=== PATIENT | male | born 1955 | race Caucasian/White ===

== ENCOUNTER → 2017-11-27 | Outpatient (CLI) | payer OTHER ==
[~2017-11-27] MED LIST: ALLO300T2 PO; ASCO500T16 PO; CYAN100020 PO; MULTTAB58 PO; RANI150C4 PO
== END | disposition home or self-care (01) ==
LOC: C.PATHSPEC 10:55
PROVIDERS: ATTEND Urology
DX: N50.89 Other specified disorders of the male genital organs (principal)

== ENCOUNTER 2024-01-10 22:27 | Observation (INO) ==
--- NOTE | 2024-01-10 23:46 | Emergency Department Note ---
Impression & Plan Closed trimalleolar fracture, Fall from slipping on mud ED Provider Note CHIEF COMPLAINT: Right ankle pain HISTORY OF PRESENT ILLNESS: This 68-year-old male patient presents to the emergency department via ambulance approximately 3-hour after sustaining an injury to the right ankle and foot with a twisting, inversion motion and he slipped in the mud and fell while tending to his chicken. The patient complains of pain along the outside of the ankle. He states he was unable to bear weight and had to crawl back to the house in order to call his daughter to help. When his daughter arrived, she called the ambulance to bring him to the emergency department. The patient denies pain of the foot. The patient rates the pain as throbbing and 8/10. Constant pain, worse with movement, weight bearing, and the dependent position. No knee pain, the patient is able to move their toes. No numbness or weakness of the foot, no laceration. The patient has not had a previous fracture to this ankle. The patient has taken no medication for the pain. The patient denies any other injury. REVIEW OF SYSTEMS: A 6 system review of systems was completed with positives and pertinent negatives listed in the HPI. ALLERGIES: NKDA PHYSICAL EXAM: Vital Signs: Reviewed Nurse's notes, vital signs stable. GENERAL: This is a 78-year-old male, no acute distress, but appears in pain, well-developed, well-nourished. MENTAL STATUS: Alert, oriented to person place and time, and cooperative. MUSCULOSKELETAL: The right ankle is swollen and tender over the medial and lateral malleolus, but the skin is intact and there is no ligamentous instability. There is no fifth metatarsal tenderness. There is no tenderness over the rest of the foot. There is no calf or tibia/fibular tenderness. There is no visual deformity. The foot and toes are warm and well- perfused. Dorsalis pedis pulse 2+. Sensation to pain and light touch is intact. Capillary refill less than 2 seconds. RADIOLOGY: X-ray right ankle, per my interpretation: Trimalleolar fracture with disruption of the ankle mortise EMERGENCY DEPARTMENT COURSE: I examined the patient. IV access was obtained, labs are drawn. The patient was medicated with IV morphine and Zofran. X-rays of the right ankle were reviewed by myself and Dr. Sharma and reveal trimalleolar fracture with disruption of the ankle mortise. I discussed the case with orthopedics. I spoke with Dr. Mosquera. Given the patient's ambulation status and that he will not be able to safely return home in a splint and being nonweightbearing on the extremity through the weekend, did recommend admission. He will operate tomorrow. Did request that we try to reduce the fracture while placing the splint. Did request that the hospitalist admit the patient. He will see the patient in the morning. He did request that the extremity be kept elevated overnight to help with swelling. A posterior leg with stirrup Ortho-Glass splint was applied to the ankle under my direction and the position was satisfactory. I did apply traction to the heel of the foot while grasping the toes with nursing staff applying countertraction at the knee in attempt to straighten the fracture during splint application. Neurovascular status was rechecked and intact. Repeat X-ray of the right ankle with only minimal improvement of the ankle mortise alignment, however the patient declines additional manipulation at this time. The patient will remain nonweightbearing status. I discussed the case with Dr. Montoya for admission. Please see his dictation regarding admission/inpatient care. DIFFERENTIAL DIAGNOSIS: Fracture, subluxation, dislocation, contusion, ligamentous injury, neurovascular, compartment syndrome, as well as other pathologies. I attest that I have personally reviewed the patient's current medication list. Patient was found to have an elevated blood pressure and was referred to their primary doctor for recheck and further treatment. The chart was completed utilizing Stream5 Speech voice recognition software. Grammatical errors, random word insertions, pronoun errors, and incomplete sentences are an occasional consequence of this system due to software limitations, ambient noise, and hardware issues. Any formal questions or concerns about the content, text, or information contained within the body of this dictation should be directly addressed to the provider for clarification. Past Med/Surg History Medical History [place] (nonalcoholic steatohepatitis) GERD (gastroesophageal reflux disease) Neuropathy Anxiety HTN (hypertension) Hepatomegaly Prostate nodule Gout Benign localized hyperplasia of prostate with urinary obstruction Transitional cell carcinoma determined by biopsy of bladder hx- ~2013- no chemo or radiation Surgical History Hx of colonoscopy History of evacuation of hematoma right thigh, after an accident Hx of blepharoplasty BILAT Hx of rotator cuff surgery History of bladder surgery Family History Other No pertinent family history Social History Smoking Status: Never smoker Tobacco Type: Smokeless Tobacco (Dip or Chew) Second Hand Exposure: No; Do You Dip or Chew Tobacco: Yes (advsied); Hx Alcohol Use: Yes Hx Substance Use: No Preferred Language: Colombian Communication Ability: Effective Sensor Specialist Required: No Beliefs That Will Affect Care: None Current Living Situation: Alone Feels Safe at Home: Yes Assistive Devices: Denture - Upper and Glasses Allergies Allergies Allergy/AdvReac Type Severity Reaction Status Date / Time No Known Allergies Allergy Verified 01/11/24 00:28 Home Meds Home Medications Medication Instructions Recorded Confirmed allopurinol 300 mg tablet 300 mg PO QAM 04/27/23 01/11/24 cholecalciferol (vitamin D3) 50 50 mcg PO QAM 04/27/23 01/11/24 mcg (2,000 unit) capsule clonidine HCl 0.1 mg tablet 0.1 mg PO QAM 04/27/23 01/11/24 gabapentin 100 mg capsule 100 mg PO BID 04/27/23 01/11/24 hydrochlorothiazide 25 mg tablet 25 mg PO QAM 04/27/23 01/11/24 losartan 100 mg tablet 100 mg PO QAM 04/27/23 01/11/24 multivitamin 1 tab PO DAILY 04/27/23 01/11/24 omeprazole 20 mg capsule,delayed 20 mg PO QAM 04/27/23 01/11/24 release aspirin 81 mg capsule 81 mg PO DAILY 10/03/23 01/11/24 cyanocobalamin (vitamin B-12) 5,000 mcg sublingual DAILY 01/11/24 01/11/24 5,000 mcg sublingual tablet (Vitamin B-12) potassium citrate 99 mg capsule 99 mg PO DAILY 01/11/24 01/11/24 Results & Data (ED) Vital Signs Vital Signs - 24 hr 01/10/24 22:27 01/11/24 00:15 Temperature 37.1 C Temperature Source Oral Pulse Rate 70 Pulse Rate [Right Finger] 88 Pulse Rhythm [Right Finger] Regular Pulse Strength [Right Finger] Normal Respiratory Rate 20 18 Respiratory Effort / Characteristics Non-Labored Spontaneous Non-Labored Spontaneous Respiratory Depth Normal Normal Respiratory Pattern Regular Blood Pressure 169/82 H Blood Pressure [Right Arm] 170/86 H Blood Pressure Mean 111 Blood Pressure Mean [Right Arm] 114 Pulse Oximetry 95 96 Oxygen Delivery Method Room Air Room Air Sepsis Recent Fever Within 48 Hours No Sepsis New/Unexplained Change in Mental Status N/A Sepsis Action Taken by Nursing No Action Required Laboratory Data 01/11/24 00:12 01/11/24 00:12 Lab Results 01/11/24 Range/Units 00:12 WBC 8.80 (4.8-10.8) K/ul RBC 4.10 L (4.70-6.10) M/uL Hgb 15.0 (14.0-18.0) g/dl Hct 42.1 (42.0-52.0) % MCV 102.7 H (80.0-100.0) fL MCH 36.6 H (25.0-34.0) pg MCHC 35.6 (32.0-36.0) g/dL RDW Std Deviation 51.2 H (36.4-46.3) fL RDW Coeff of Nettie 13.5 (11.5-14.5) % Plt Count 221 (130-400) K/uL MPV 11.3 (9.4-12.4) fL Immature Gran % (Auto) 0.6 % Neut % (Auto) 66.4 % Lymph % (Auto) 23.1 % [place] % (Auto) 7.8 % Eos % (Auto) 1.3 % Baso % (Auto) 0.8 % Neut # (Auto) 5.85 (1.40-6.50) K/uL Lymph # (Auto) 2.03 (1.20-3.40) K/uL [place] # (Auto) 0.69 H (0.11-0.59) K/uL Eos # (Auto) 0.11 (0.00-0.50) K/uL Baso # (Auto) 0.07 (0.00-0.20) K/uL Immature Gran # (Auto) 0.05 (0.01-0.20) K/uL Sodium 140 (136-145) mmol/L Potassium 3.9 (3.5-5.1) mmol/L Chloride 108 H (98-107) mmol/L Carbon Dioxide 20 L (21-32) mmol/L Anion Gap 12 H (3-11) BUN 17 (6-23) mg/dl Creatinine 0.93 (0.6-1.4) mg/dl Est Cr Clr Drug Dosing 94.8 ml/min Est GFR ( Amer) 96.7 ml/min Est GFR (Non-Af Amer) 83.5 ml/min BUN/Creatinine Ratio 18.3 (10-20) Glucose 114 H (70-99(Fasting)) mg/dl Calcium 9.4 (8.6-10.3) mg/dl Total Bilirubin 0.8 (0.2-1.0) mg/dl AST 52 H (13-39) U/L ALT 53 H (7-52) U/L Alkaline Phosphatase 39 (34-104) U/L Total Protein 6.9 (6.0-8.3) gm/dl Albumin 4.2 (3.4-5.0) gm/dl Globulin 2.7 (2.5-4.0) gm/dl Albumin/Globulin Ratio 1.6 (0.9-2) Administered Medications Discontinued Medications Morphine Sulfate (Morphine Sulfate 4 Mg/Ml 1 Ml Carp\Vial) 4 mg IV NOW STA Stop: 01/10/24 23:35 Last Admin: 01/11/24 00:08 Dose: 4 mg Documented By: RIVERA Morphine Sulfate (Morphine Sulfate 4 Mg/Ml 1 Ml Carp\Vial) 4 mg IV NOW STA Stop: 01/11/24 00:34 Last Admin: 01/11/24 00:35 Dose: 4 mg Documented By: RIVERA Ondansetron HCl (Ondansetron Inj 2 Mg/Ml 2 Ml Vial) 4 mg IV NOW STA Stop: 01/10/24 23:35 Last Admin: 01/11/24 00:09 Dose: 4 mg Documented By: RIVERA Discharge Plan Visit Data Chief Complaint: Fall Stated Complaint: FALL ED Provider: Aric Sharma ED Midlevel Provider: Chasity Chahal Discharge Problem: Closed trimalleolar fracture, Fall from slipping on mud Patient Disposition: Admitted As Inpatient Forms Stand Alone Forms: [facility] Prescriptions Prescriptions: No Action clonidine HCl 0.1 mg tablet 0.1 mg PO QAM losartan 100 mg tablet 100 mg PO QAM hydrochlorothiazide 25 mg tablet 25 mg PO QAM omeprazole 20 mg capsule,delayed release(DR/EC) 20 mg PO QAM gabapentin 100 mg capsule 100 mg PO BID cholecalciferol (vitamin D3) 50 mcg (2,000 unit) capsule 50 mcg PO QAM allopurinol 300 mg tablet 300 mg PO QAM multivitamin Tablet 1 tab PO DAILY aspirin 81 mg Capsule 81 mg PO DAILY cyanocobalamin (vitamin B-12) [Vitamin B-12] 5,000 mcg Tablet, Sublingual 5,000 mcg SUBLINGUAL DAILY potassium citrate 99 mg Capsule 99 mg PO DAILY Referrals Referrals: Noe Maldonado [Outside Practitioners] -
[2024-01-11] MEDS: MoRPHine SULFATE 4 MG/ML 1 ML CARP\\VIAL IV STA ×2 (00:08→00:35)
[2024-01-11] MEDS: ONDANSETRON INJ 2 MG/ML 2 ML VIAL IV STA (00:09)
[2024-01-11 00:40] LABS: Basophils # (auto) 0.07 K/uL (0.00-0.20); Basophils % (auto) 0.8 %; Eosinophils # (auto) 0.11 K/uL (0.00-0.50); Eosinophils % (auto) 1.3 %; Hematocrit (blood only) 42.1 % (42.0-52.0); Immature Granulocytes # (auto) 0.05 K/uL (0.01-0.20); Immature Granulocytes % (auto) 0.6 %; Lymphocytes # (auto) 2.03 K/uL (1.20-3.40); Lymphocytes % (auto) 23.1 %; Mean Corpuscular Hemoglobin 36.6 pg (25.0-34.0); Mean Corpuscular Hgb Conc 35.6 g/dL (32.0-36.0); Mean Corpuscular Volume 102.7 fL (80.0-100.0); Mean Platelet Volume 11.3 fL (9.4-12.4); Monocytes # (auto) 0.69 K/uL (0.11-0.59); Monocytes % (auto) 7.8 %; Neutrophils # (auto) 5.85 K/uL (1.40-6.50); Neutrophils % (auto) 66.4 %; Platelet Count 221 K/uL (130-400); RDW Coefficient of Variation 13.5 % (11.5-14.5); RDW Standard Deviation 51.2 fL (36.4-46.3)
[2024-01-11 00:48] LABS: Albumin Globulin Ratio 1.6 (0.9-2); Albumin Level 4.2 gm/dl (3.4-5.0); BUN Creatinine Ratio 18.3 (10-20); Bilirubin,Total 0.8 mg/dl (0.2-1.0); Calcium 9.4 mg/dl (8.6-10.3); Creatinine Clr Calc Pharmacy 94.8 ml/min; Est GFR (African American) 96.7 ml/min; Est GFR (Non-African American) 83.5 ml/min; Globulin 2.7 gm/dl (2.5-4.0); Potassium 3.9 mmol/L (3.5-5.1); Total Protein 6.9 gm/dl (6.0-8.3)
[2024-01-11] MEDS ORDERED: LORazepam 3 MG in SYRINGE 1.5 ML IV PRN (03:23)
[2024-01-11] MEDS ORDERED: LORazepam 2 MG in SYRINGE 1 ML IV PRN (03:23)
[2024-01-11] MEDS ORDERED: LORazepam 1 MG in SYRINGE 0.5 ML IV PRN (03:23)
[2024-01-11] MEDS ORDERED: GABAPENTIN 1200MG ALCOHOL WITHDRAWAL LOAD PO STA (03:23)
[2024-01-11] MEDS ORDERED: POLYETHYLENE (MIRALAX) 17 GM PACK PO PRN (03:23)
[2024-01-11] MEDS ORDERED: Ativan IV Alcohol Withdrawal--Active Protocol IV PRN (03:23)
--- NOTE | 2024-01-11 03:28 | History & Physical Report ---
Date of Service January 11, 2024 Assessment & Plan (1) Fall from slipping on mud: Plan: 68-year-old male with past medical history significant for gout, hypertension, GERD is s/p fall and found to have right ankle fracture. Patient was tending to chicken when he slipped and fell in the mud and twisting his leg. Was having pain. Prior to falling was able to ambulate okay. He can ambulate a block without stopping. He can climb steps. Denies any chest pain or shortness of breath. No nausea. No headache. No dizziness. Vision is okay. No runny nose or sore throat or cough. No nausea. No abdominal pain. Normal bowel and bladder movements. Currently resting comfortably and hemodynamically stable. No fevers Fall from slipping on mud Right ankle fracture N.p.o., IV fluids, pain control Ortho consult in a.m. Will get preop checks x-ray and EKG and if okay patient should be at acceptable to proceed with the any procedures for ankle fracture Hypertension Continue home medications of hydrochlorothiazide, clonidine and losartan GERD omeprazole Alcoholism States drinks 3-4 shots of vodka daily and he states he can go without drinking and does not think he gets withdrawal Will place on gabapentin alcohol withdrawal protocol with Ativan as needed, thiamine and folic acid Close monitor Morbid obesity [place] Needs counseling Needs follow-up DVT prophylaxis Per Ortho Disposition Medical floor Full code History of Present Illness Chief Complaint: S/p fall and right ankle fracture Primary Care Provider: Kaela Campos 68-year-old male with past medical history significant for gout, hypertension, GERD is s/p fall and found to have right ankle fracture. Patient was tending to chicken when he slipped and fell in the mud and twisted his leg. Was having pain. Prior to falling was able to ambulate okay. He can ambulate a block without stopping. He can climb steps. Denies any chest pain or shortness of breath. No nausea. No headache. No dizziness. Vision is okay. No runny nose or sore throat or cough. No nausea. No abdominal pain. Normal bowel and bladder movements. Currently resting comfortably and hemodynamically stable. No fevers Past medical history. As mentioned above Past surgical history. Right wrist fracture ORIF. Right shoulder surgery Social history. . Snuff tobacco states drink 3-4 shots of vodka daily. 2 drug use Family history. Mother had heart disorder Allergies Allergy/AdvReac Type Severity Reaction Status Date / Time No Known Allergies Allergy Verified 01/11/24 00:28 Home Medications Medication Instructions Recorded Confirmed Type allopurinol 300 mg tablet 300 mg PO QAM 04/27/23 01/11/24 History cholecalciferol (vitamin D3) 50 50 mcg PO QAM 04/27/23 01/11/24 History mcg (2,000 unit) capsule clonidine HCl 0.1 mg tablet 0.1 mg PO QAM 04/27/23 01/11/24 History gabapentin 100 mg capsule 100 mg PO BID 04/27/23 01/11/24 History hydrochlorothiazide 25 mg tablet 25 mg PO QAM 04/27/23 01/11/24 History losartan 100 mg tablet 100 mg PO QAM 04/27/23 01/11/24 History multivitamin 1 tab PO DAILY 04/27/23 01/11/24 History omeprazole 20 mg capsule,delayed 20 mg PO QAM 04/27/23 01/11/24 History release aspirin 81 mg capsule 81 mg PO DAILY 10/03/23 01/11/24 History cyanocobalamin (vitamin B-12) 5,000 mcg sublingual DAILY 01/11/24 01/11/24 History 5,000 mcg sublingual tablet (Vitamin B-12) potassium citrate 99 mg capsule 99 mg PO DAILY 01/11/24 01/11/24 History Past Med/Surg History Medical History [place] (nonalcoholic steatohepatitis) GERD (gastroesophageal reflux disease) Neuropathy Anxiety HTN (hypertension) Hepatomegaly Prostate nodule Gout Benign localized hyperplasia of prostate with urinary obstruction Transitional cell carcinoma determined by biopsy of bladder hx- ~2013- no chemo or radiation Surgical History Hx of colonoscopy History of evacuation of hematoma right thigh, after an accident Hx of blepharoplasty BILAT Hx of rotator cuff surgery History of bladder surgery Family History Other No pertinent family history Social History Smoking Status: Never smoker Tobacco Type: Smokeless Tobacco (Dip or Chew) Second Hand Exposure: No; Do You Dip or Chew Tobacco: Yes; Hx Alcohol Use: Yes Alcohol type: hard liquor Hx Substance Use: No Preferred Language: Kosovan Communication Ability: Effective Tax Associate Attorney Required: No Beliefs That Will Affect Care: None Current Living Situation: Alone Feels Safe at Home: Yes Safety Concerns: Feels Safe At This Time Assistive Devices: Denture - Upper and Glasses Review of Systems Review of Systems: All systems reviewed & are unremarkable except as noted in HPI & below Physical Exam Physical Exam: General- Not in distress Head- atraumatic Eyes- PERRL ENT- oropharynx clear Neck- supple, no JVD. Lungs- clear to auscultation no wheezing or crackles Heart- regular rate and rhythm; no murmur, no gallop. Abdomen- normal bowel sounds, soft, nontender, no distension Extremities- Right leg in splint.left leg no edema or erytthema Neuro- alert, oriented ; PERRL, no facial palsy; no dysarthria; obeys simple commands Results & Data Results & Data Vital Signs (Past 12 Hours) Vital Signs Temp Pulse Pulse Resp BP BP Pulse Ox 01/11/24 02:00 80 16 149/71 H 97 01/11/24 02:00 97 01/11/24 00:15 88 18 170/86 H 96 01/10/24 22:27 37.1 C 70 20 169/82 H 95 O2 Del Method O2 Flow Rate 01/11/24 02:00 Nasal Cannula 2 01/11/24 02:00 Nasal Cannula 2 01/11/24 00:15 Room Air 01/10/24 22:27 Room Air Diagnostic Findings Laboratory Results WBC 8.80 K/ul (4.8-10.8) 01/11/24 00:12 RBC 4.10 M/uL (4.70-6.10) L 01/11/24 00:12 Hgb 15.0 g/dl (14.0-18.0) 01/11/24 00:12 Hct 42.1 % (42.0-52.0) 01/11/24 00:12 MCV 102.7 fL (80.0-100.0) H 01/11/24 00:12 MCH 36.6 pg (25.0-34.0) H 01/11/24 00:12 MCHC 35.6 g/dL (32.0-36.0) 01/11/24 00:12 RDW Std Deviation 51.2 fL (36.4-46.3) H 01/11/24 00:12 RDW Coeff of Nettie 13.5 % (11.5-14.5) 01/11/24 00:12 Plt Count 221 K/uL (130-400) 01/11/24 00:12 MPV 11.3 fL (9.4-12.4) 01/11/24 00:12 Immature Gran % (Auto) 0.6 % 01/11/24 00:12 Neut % (Auto) 66.4 % 01/11/24 00:12 Lymph % (Auto) 23.1 % 01/11/24 00:12 [place] % (Auto) 7.8 % 01/11/24 00:12 Eos % (Auto) 1.3 % 01/11/24 00:12 Baso % (Auto) 0.8 % 01/11/24 00:12 Neut # (Auto) 5.85 K/uL (1.40-6.50) 01/11/24 00:12 Lymph # (Auto) 2.03 K/uL (1.20-3.40) 01/11/24 00:12 [place] # (Auto) 0.69 K/uL (0.11-0.59) H 01/11/24 00:12 Eos # (Auto) 0.11 K/uL (0.00-0.50) 01/11/24 00:12 Baso # (Auto) 0.07 K/uL (0.00-0.20) 01/11/24 00:12 Immature Gran # (Auto) 0.05 K/uL (0.01-0.20) 01/11/24 00:12 Sodium 140 mmol/L (136-145) 01/11/24 00:12 Potassium 3.9 mmol/L (3.5-5.1) 01/11/24 00:12 Chloride 108 mmol/L (98-107) H 01/11/24 00:12 Carbon Dioxide 20 mmol/L (21-32) L 01/11/24 00:12 Anion Gap 12 (3-11) H 01/11/24 00:12 BUN 17 mg/dl (6-23) 01/11/24 00:12 Creatinine 0.93 mg/dl (0.6-1.4) 01/11/24 00:12 Est Cr Clr Drug Dosing 94.8 ml/min 01/11/24 00:12 Est GFR ( Amer) 96.7 ml/min 01/11/24 00:12 Est GFR (Non-Af Amer) 83.5 ml/min 01/11/24 00:12 BUN/Creatinine Ratio 18.3 (10-20) 01/11/24 00:12 Glucose 114 mg/dl (70-99(Fasting)) H 01/11/24 00:12 Calcium 9.4 mg/dl (8.6-10.3) 01/11/24 00:12 Total Bilirubin 0.8 mg/dl (0.2-1.0) 01/11/24 00:12 AST 52 U/L (13-39) H 01/11/24 00:12 ALT 53 U/L (7-52) H 01/11/24 00:12 Alkaline Phosphatase 39 U/L (34-104) 01/11/24 00:12 Total Protein 6.9 gm/dl (6.0-8.3) 01/11/24 00:12 Albumin 4.2 gm/dl (3.4-5.0) 01/11/24 00:12 Globulin 2.7 gm/dl (2.5-4.0) 01/11/24 00:12 Albumin/Globulin Ratio 1.6 (0.9-2) 01/11/24 00:12 Code Status & VTE Plan VTE Prophylaxis Plan VTE Prophylaxis will be ordered: Yes
[2024-01-11] MEDS: MULTI-VITAMIN INFUSION 10 ML, THIAMINE HCL 100 MG, FOLIC ACID 1 MG in SODIUM CHLORIDE 0... IV ONE (04:34)
[2024-01-11] MEDS: GABAPENTIN 600 MG TAB PO ONE (04:34)
[2024-01-11] MEDS: ACETAMINOPHEN 325 MG TAB PO PRN (05:10)
[2024-01-11] MEDS: HYDROmorphone INJ 0.5 MG/0.5 ML SYR IV PRN (05:52)
[2024-01-11] MEDS: SODIUM CHLORIDE 0.9% 1,000 ML IV SCH ×2 (06:39→19:01)
--- NOTE | 2024-01-11 07:07 | XRay Report ---
XR chest 1V portable HISTORY: 68 years-old Male pre op preoperative exam. No acute chest complaints COMPARISON: 12/19/2021 TECHNIQUE: AP view of the chest FINDINGS: Cardiac silhouette is upper limits of normal in size. No pneumothorax, pleural effusion or airspace c onsolidation. Bones appear grossly intact. IMPRESSION: No acute process. ACT 112: Negative or not required by law. The above report was generated using voice recognition software. It may contain grammatical, syntax o r spelling errors. Electronically signed by: Mike Lozano M.D. 01/11/2024 7:05 AM
--- NOTE | 2024-01-11 07:11 | XRay Report ---
XR ankle RT 2V HISTORY: 68 years-old Male post-splint acute right ankle pain COMPARISON: Radiographs of same day at 10:37 PM TECHNIQUE: 2 radiographic views of the right ankle FINDINGS: Status post reduction and casting of the acute comminuted trimalleolar ankle fracture. There is mildl y improved alignment of the lateral, medial and posterior malleolar fractures. Additionally, there is improved alignment of the tibiotalar joint. Intra-articular fracture fragments of the anterior joint recess measuring up to 10 mm. Spurring of the calcaneus. Findings bony details obscured by overlying casting material. IMPRESSION: 1. Mildly improved alignment of the acute trimalleolar ankle fracture with improved alignment of the tibiotalar joint. 2. Intra-articular fracture fragments measure up to 10 mm. ACT 112: Negative or not required by law. The above report was generated using voice recognition software. It may contain grammatical, syntax o r spelling errors. Electronically signed by: Mike Lozano M.D. 01/11/2024 7:09 AM
--- NOTE | 2024-01-11 07:27 | XRay Report ---
XR ankle RT min 3V routine HISTORY: 68 years-old Male Ankle trauma, no prior imaging acute right ankle pain status post trauma COMPARISON: None TECHNIQUE: 3 views of the right ankle FINDINGS: There is an acute, comminuted, angulated and displaced trimalleolar ankle fracture with associated ti biotalar subluxation. Moderate soft tissue swelling with joint effusion. Intra-articular fracture fra gments measure up to approximately 10 mm anteriorly. Spurring of the calcaneus with dystrophic calcif ications of the distal Achilles tendon. IMPRESSION: 1. Acute, comminuted, displaced and angulated trimalleolar ankle fracture. 2. Tibiotalar subluxation with intra-articular fracture fragments. ACT 112: Negative or not required by law. The above report was generated using voice recognition software. It may contain grammatical, syntax o r spelling errors. Electronically signed by: Mike Lozano M.D. 01/11/2024 7:26 AM
--- NOTE | 2024-01-11 07:34 | Anesthesiology Consultation ---
Date of Service January 11, 2024 Assessment & Plan (1) Encounter for pre-operative examination: Chart Review Chart Review: Acceptable Risk for Surgery (ECG has been ordered and will be reviewed preop) History Surgery Operation Date: 01/11/24 07:20 Proposed Procedures p Right Open Reduction Internal Fixation Ankle - Cam Mosquera MD Height/Weight Height: 5 ft 8 in Weight: 120.8 kg Allergies Allergy/AdvReac Type Severity Reaction Status Date / Time No Known Allergies Allergy Verified 01/11/24 00:28 Medications Home Medications Medication Instructions Recorded Confirmed Last Taken allopurinol 300 mg tablet 300 mg PO QAM 04/27/23 01/11/24 01/10/24 cholecalciferol (vitamin D3) 50 50 mcg PO QAM 04/27/23 01/11/24 01/10/24 mcg (2,000 unit) capsule clonidine HCl 0.1 mg tablet 0.1 mg PO QAM 04/27/23 01/11/24 01/10/24 gabapentin 100 mg capsule 100 mg PO BID 04/27/23 01/11/24 01/10/24 hydrochlorothiazide 25 mg tablet 25 mg PO QAM 04/27/23 01/11/24 01/10/24 losartan 100 mg tablet 100 mg PO QAM 04/27/23 01/11/24 01/10/24 multivitamin 1 tab PO DAILY 04/27/23 01/11/24 01/10/24 omeprazole 20 mg capsule,delayed 20 mg PO QAM 04/27/23 01/11/24 01/10/24 release aspirin 81 mg capsule 81 mg PO DAILY 10/03/23 01/11/24 01/10/24 cyanocobalamin (vitamin B-12) 5,000 mcg sublingual DAILY 01/11/24 01/11/24 01/10/24 5,000 mcg sublingual tablet (Vitamin B-12) potassium citrate 99 mg capsule 99 mg PO DAILY 01/11/24 01/11/24 01/10/24 Active Medications Generic Name Dose Route Start Last Admin Trade Name Freq PRN Reason Stop Dose Admin Acetaminophen 650 mg 01/11/24 03:23 01/11/24 05:10 Acetaminophen 325 Mg Tab PO 02/10/24 03:22 650 mg Q4H PRN Administration pain/fever Hydromorphone HCl 0.5 mg 01/11/24 03:23 01/11/24 05:52 Hydromorphone Inj 0.5 Mg/0.5 Ml Syr IV 01/25/24 03:22 0.5 mg Q3H PRN Administration Mod-Sev Pain (Scale 4-10) Sodium Chloride 1,000 mls @ 100 mls/hr 01/11/24 03:23 01/11/24 06:39 Nss IV 02/10/24 03:22 100 mls/hr .Q10H MELISSA Administration Past Medical History Medical History [place] (nonalcoholic steatohepatitis) GERD (gastroesophageal reflux disease) Neuropathy Anxiety HTN (hypertension) Hepatomegaly Prostate nodule Gout Benign localized hyperplasia of prostate with urinary obstruction Transitional cell carcinoma determined by biopsy of bladder hx- ~2013- no chemo or radiation Past Family History Family History Other No pertinent family history Past Surgical History Surgical History Hx of colonoscopy History of evacuation of hematoma right thigh, after an accident Hx of blepharoplasty BILAT Hx of rotator cuff surgery History of bladder surgery Social History Smoking Status: Never smoker Do You Dip or Chew Tobacco: Yes Hx Alcohol Use: Yes Alcohol type: hard liquor alcohol intake frequency: 3 or more drinks per day Hx Substance Use: No substance use type: does not use Physical Exam Vital Signs Last Vital Signs Temp 36.7 C 01/11/24 04:36 Pulse 77 01/11/24 06:59 Resp 18 01/11/24 06:59 BP 133/68 01/11/24 06:59 Pulse Ox 97 01/11/24 06:59 O2 Del Method Nasal Cannula 01/11/24 06:59 O2 Flow Rate 2 01/11/24 06:59 Testing Laboratory Results 01/11/24 00:12 01/11/24 00:12
[2024-01-11 08:15] LABS: Basophils # (auto) 0.05 K/uL (0.00-0.20); Basophils % (auto) 0.6 %; Eosinophils # (auto) 0.12 K/uL (0.00-0.50); Eosinophils % (auto) 1.4 %; Hematocrit (blood only) 41.4 % (42.0-52.0); Hemoglobin 14.2 g/dl (14.0-18.0); Immature Granulocytes # (auto) 0.04 K/uL (0.01-0.20); Immature Granulocytes % (auto) 0.5 %; Lymphocytes # (auto) 1.73 K/uL (1.20-3.40); Lymphocytes % (auto) 20.4 %; Mean Corpuscular Hemoglobin 35.9 pg (25.0-34.0); Mean Corpuscular Hgb Conc 34.3 g/dL (32.0-36.0); Mean Corpuscular Volume 104.5 fL (80.0-100.0); Mean Platelet Volume 11.2 fL (9.4-12.4); Monocytes # (auto) 0.85 K/uL (0.11-0.59); Neutrophils # (auto) 5.68 K/uL (1.40-6.50); Neutrophils % (auto) 67.1 %; Platelet Count 191 K/uL (130-400); RDW Coefficient of Variation 13.7 % (11.5-14.5); Red Blood Count 3.96 M/uL (4.70-6.10); White Blood Count 8.47 K/ul (4.8-10.8)
[2024-01-11 08:24] LABS: BUN Creatinine Ratio 17.2 (10-20); Calcium 8.8 mg/dl (8.6-10.3); Creatinine Clr Calc Pharmacy 94.8 ml/min; Est GFR (African American) 96.7 ml/min; Est GFR (Non-African American) 83.5 ml/min; Magnesium 1.4 mg/dl (1.7-2.4); Potassium 4.1 mmol/L (3.5-5.1)
[2024-01-11] MEDS: cloNIDine HCL 0.1 MG TAB PO SCH (08:43)
[2024-01-11] MEDS: allopurinoL 300 MG TAB PO SCH (08:43)
[2024-01-11] MEDS: PANTOprazole 40 MG TAB PO SCH (08:43)
[2024-01-11] MEDS: ASPIRIN 81 MG ECTAB PO SCH ×2 (08:44→20:12)
[2024-01-11] MEDS: LOSARTAN POTASSIUM 50 MG TAB PO SCH (08:44)
[2024-01-11] MEDS: MULTIVITAMIN TAB PO SCH (08:44)
[2024-01-11] MEDS: hydroCHLOROthiazide 25 MG TAB PO SCH (08:44)
[2024-01-11] MEDS: CHOLECALCIFEROL 25 MCG (1000 UNITS) TAB PO SCH (08:44)
[2024-01-11] MEDS: CYANOCOBALAMIN (B-12) 2,500 MCG TABLET SL SCH (08:44)
[2024-01-11] MEDS ORDERED: NON-FORMULARY MEDICATION (Potassium Citrate 99 mg Capsule) PO SCH (09:00)
[2024-01-11] MEDS ORDERED: ROPIVACAINE 0.5% 5 MG/ML 30 ML VIAL ONE (09:02)
[2024-01-11] MEDS: GABAPENTIN 600 MG TAB PO SCH (09:29)
[2024-01-11] MEDS ORDERED: MIDAZOLAM HCL 1 MG/ML 2ML VIAL ONE (11:41)
[2024-01-11] MEDS ORDERED: fentaNYL citrate PF 100 MCG/2 ML VIAL ONE ×2 (11:41→14:41)
[2024-01-11] MEDS ORDERED: DEXAMETHASONE SOD INJ 4 MG/ML VIAL ONE (11:44)
[2024-01-11] MEDS ORDERED: ONDANSETRON INJ 2 MG/ML 2 ML VIAL ONE (11:44)
[2024-01-11] MEDS ORDERED: PROPOFOL IV EMULSION 10 MG/ML 20 ML VIAL IV ONE (11:44)
--- NOTE | 2024-01-11 11:47 | Orthopedic Consultation ---
Date of Service January 11, 2024 Assessment & Plan (1) Closed trimalleolar fracture: I had a long discussion today with patient about his right ankle pathology with ample amount of time patient ask any questions or state and concerns. All question concerns were answered to the patient satisfaction. At this point in time, I did discuss with him that his right ankle fracture will require surgery to improve his outcome from this fracture. I described the risk, benefits, alternatives to open reduction internal fixation of right trimalleolar ankle fracture in full detail with ample amount of time for patient to ask any questions or state any concerns. All questions and concerns were answered to the patient's satisfaction. Patient wishes to proceed with surgical intervention. Consent was signed and witnessed. Will proceed later this afternoon with the stated procedure. Dr. Mosquera will be the surgeon performing the operation. He will remain n.p.o. at this point. Postoperative expectations were also discussed with the patient. Will proceed with surgical intervention later today. History of Present Illness Reason for Consultation: . Right trimalleolar ankle fracture Requesting Physician: . Attending Physician: Josefina Chaney MD . Channing is a 68-year-old gentleman who presented to the emergency department after sustaining a fall late last evening. He notes that he was outside tending to his chickens whenever he slipped on blood and landed on his right side. He noted that he was unable to weight-bear so he had to crawl back to his house. At that point his daughter was able to call for help. When he arrived at the emergency department an x-ray was completed and is when they found that he had a trimalleolar ankle fracture. They were able to put a temporary splint on him. Orthopedics was then consulted. Upon my examination, he notes that his pain is well-controlled unless he tries to move the right lower extremity. He notes that his pain is about a 4 out of 10 and less moved and then can go to a 10 out of 10. His pain is diffusely throughout the right ankle joint. He denies any other discomforts. He does state that he takes a baby aspirin daily but is unaware when his last dose was. His past medical history significant for hypertension but he is nondiabetic and no thyroid conditions. Allergies Allergy/AdvReac Type Severity Reaction Status Date / Time No Known Allergies Allergy Verified 01/11/24 00:28 Home Medications Medication Instructions Recorded Confirmed Type allopurinol 300 mg tablet 300 mg PO QAM 04/27/23 01/11/24 History cholecalciferol (vitamin D3) 50 50 mcg PO QAM 04/27/23 01/11/24 History mcg (2,000 unit) capsule clonidine HCl 0.1 mg tablet 0.1 mg PO QAM 04/27/23 01/11/24 History gabapentin 100 mg capsule 100 mg PO BID 04/27/23 01/11/24 History hydrochlorothiazide 25 mg tablet 25 mg PO QAM 04/27/23 01/11/24 History losartan 100 mg tablet 100 mg PO QAM 04/27/23 01/11/24 History multivitamin 1 tab PO DAILY 04/27/23 01/11/24 History omeprazole 20 mg capsule,delayed 20 mg PO QAM 04/27/23 01/11/24 History release aspirin 81 mg capsule 81 mg PO DAILY 10/03/23 01/11/24 History cyanocobalamin (vitamin B-12) 5,000 mcg sublingual DAILY 01/11/24 01/11/24 History 5,000 mcg sublingual tablet (Vitamin B-12) potassium citrate 99 mg capsule 99 mg PO DAILY 01/11/24 01/11/24 History Past Med/Surg History Medical History BRYSON (nonalcoholic steatohepatitis) GERD (gastroesophageal reflux disease) Neuropathy Anxiety HTN (hypertension) Hepatomegaly Prostate nodule Gout Benign localized hyperplasia of prostate with urinary obstruction Transitional cell carcinoma determined by biopsy of bladder hx- ~2013- no chemo or radiation Surgical History Hx of colonoscopy History of evacuation of hematoma right thigh, after an accident Hx of blepharoplasty BILAT Hx of rotator cuff surgery History of bladder surgery Family History Other No pertinent family history Social History Smoking Status: Never smoker Tobacco Type: Smokeless Tobacco (Dip or Chew) Second Hand Exposure: No; Do You Dip or Chew Tobacco: Yes; Hx Alcohol Use: Yes Alcohol type: hard liquor Hx Substance Use: No Preferred Language: Turkmen Communication Ability: Effective Lamp Shade Sewer Required: No Beliefs That Will Affect Care: None Current Living Situation: Alone Feels Safe at Home: Yes Safety Concerns: Feels Safe At This Time Assistive Devices: Denture - Upper and Glasses Review of Systems All systems reviewed & are unremarkable except as noted in HPI & below. Physical Exam .General- Not in distress Head- atraumatic Eyes- PERRL ENT- oropharynx clear Neck- supple, no JVD. Lungs- clear to auscultation no wheezing or crackles Heart- regular rate and rhythm; no murmur, no gallop. Abdomen- normal bowel sounds, soft, nontender, no distension Neuro- alert, oriented ; PERRL, no facial palsy; no dysarthria; obeys simple commands Musculoskeletal On physical examination of the right ankle, splint is clean, dry, and intact maintaining neutrality of the right ankle. He is able to wiggle all 5 toes. Less than 2-second capillary refill. Normal sensation. Neurovascular intact. Results & Data Results & Data Laboratory Results . Diagnostic Findings Ankle X-Ray 01/10/24 22:33 XR ankle RT min 3V routine HISTORY: 68 years-old Male Ankle trauma, no prior imaging acute right ankle pain status post trauma COMPARISON: None TECHNIQUE: 3 views of the right ankle FINDINGS: There is an acute, comminuted, angulated and displaced trimalleolar ankle fracture with associated tibiotalar subluxation. Moderate soft tissue swelling with joint effusion. Intra-articular fracture fragments measure up to approximately 10 mm anteriorly. Spurring of the calcaneus with dystrophic calcifications of the distal Achilles tendon. IMPRESSION: 1. Acute, comminuted, displaced and angulated trimalleolar ankle fracture. 2. Tibiotalar subluxation with intra-articular fracture fragments. ACT 112: Negative or not required by law. The above report was generated using voice recognition software. It may contain grammatical, syntax or spelling errors. Electronically signed by: Mike Lozano M.D. 01/11/2024 7:26 AM Ankle X-Ray 01/11/24 00:54 XR ankle RT 2V HISTORY: 68 years-old Male post-splint acute right ankle pain COMPARISON: Radiographs of same day at 10:37 PM TECHNIQUE: 2 radiographic views of the right ankle FINDINGS: Status post reduction and casting of the acute comminuted trimalleolar ankle fracture. There is mildly improved alignment of the lateral, medial and posterior malleolar fractures. Additionally, there is improved alignment of the tibiotalar joint. Intra-articular fracture fragments of the anterior joint recess measuring up to 10 mm. Spurring of the calcaneus. Findings bony details obscured by overlying casting material. IMPRESSION: 1. Mildly improved alignment of the acute trimalleolar ankle fracture with improved alignment of the tibiotalar joint. 2. Intra-articular fracture fragments measure up to 10 mm. ACT 112: Negative or not required by law. The above report was generated using voice recognition software. It may contain grammatical, syntax or spelling errors. Electronically signed by: Mike Lozano M.D. 01/11/2024 7:09 AM Chest X-Ray 01/11/24 03:44 XR chest 1V portable HISTORY: 68 years-old Male pre op preoperative exam. No acute chest complaints COMPARISON: 12/19/2021 TECHNIQUE: AP view of the chest FINDINGS: Cardiac silhouette is upper limits of normal in size. No pneumothorax, pleural effusion or airspace consolidation. Bones appear grossly intact. IMPRESSION: No acute process. ACT 112: Negative or not required by law. The above report was generated using voice recognition software. It may contain grammatical, syntax or spelling errors. Electronically signed by: Mike Lozano M.D. 01/11/2024 7:05 AM PG Care Time/CCT Total # of Minutes Spent Total Time Spent with Patient: Total time spent is greater than 50% in coordination of care (as documented) at patient's floor/unit and/or counseling patient: Coding Level of Care Code 89657 IN/OBS CONSULT LVL 3,45M Diagnoses Closed trimalleolar fracture of right ankle, initial encounter S82.851A Encounter type: initial encounter Laterality: right Additional Codes Fx Ankle - Trimalleolar ankle: Trimalleolar ankle ([id number]) (1) Closed trimalleolar fracture Encounter type: initial encounter Laterality: right Qualified Code(s): S82.851A - Displaced trimalleolar fracture of right lower leg, initial encounter for closed fracture
[2024-01-11] MEDS ORDERED: ATROPINE SULFATE 0.1 MG/ML 10ML SYR IV PRN (12:13)
[2024-01-11] MEDS ORDERED: ONDANSETRON INJ 2 MG/ML 2 ML VIAL IV PRN ×2 (12:13→16:40)
[2024-01-11] MEDS ORDERED: fentaNYL citrate PF 100 MCG/2 ML VIAL IV PRN (12:13)
[2024-01-11] MEDS ORDERED: ePHEDrine sulfate 50 MG/ML AMP IV PRN (12:13)
--- NOTE | 2024-01-11 12:58 | History & Physical Bridge Note ---
Date of Service January 11, 2024 History & Physical Bridge Note I have examined the patient, reviewed the History & Physical and in the interval since the performance of the History & Physical I have noted the following changes of clinical significance: no changes noted
[2024-01-11] MEDS ORDERED: PHENYLEPHRINE 100MCG/ML 10ML SYR IV ONE (13:36)
[2024-01-11] MEDS: ceFAZolin 2000MG 2,000 MG/15 ML SYR IV ONE (13:49)
[2024-01-11] MEDS: ceFAZolin 2,000 MG/15 ML IV PUSH IV ONE (13:49)
[2024-01-11] MEDS ORDERED: ePHEDrine sulfate 50 MG/5 ML SYR ONE (14:00)
[2024-01-11] MEDS ORDERED: ceFAZolin 330 MG/ML 1 GM VIAL ONE (14:00)
[2024-01-11] MEDS ORDERED: ePHEDrine sulfate 50 MG/ML AMP ONE (14:00)
[2024-01-11] MEDS ORDERED: PHENYLEPHRINE HCL 10 MG/ML VIAL ONE (14:04)
[2024-01-11] MEDS: BUPIVACAINE/EPINEPHRINE 0.5% MPF 1:200,000 30 ML VIAL ONE (15:10)
--- NOTE | 2024-01-11 15:18 | Fluoroscopy Report ---
FL ankle RT 2V CLINICAL HISTORY: RIGHT ANKLE ORIF COMPARISON STUDY: 01/11/2024. FLUOROSCOPY TIME: 24 seconds FLUOROSCOPY IMAGES: 5 Ka,r: 0.8 mGy FINDINGS: Internal fixation of a trimalleolar right ankle fracture with cortical plates and screws. T he hardware appears intact. Alignment appears near-anatomic. IMPRESSION: Fluoroscopic assistance as above. ACT 112: Negative or not required by law. Electronically signed by: Alex Nix M.D. 01/11/2024 3:17 PM
--- NOTE | 2024-01-11 15:41 | Operative Report ---
PG Post Operative Report Pre & Post Diagnosis Operation Date: 01/11/24 07:20 Pre-Op Diagnosis: (1) Closed right trimalleolar fracture Post-Op Diagnosis: (1) Closed right trimalleolar fracture I identified the patient and participated in the time-out.: Yes Procedure Operation Date: 01/11/24 07:20 Actual Procedures p Right Open Reduction Internal Fixation trimalleolar ankle(Right) - Cam Mosquera MD Surgeon Cam Mosquera MD Employee Counselor Mike Nails PA-C Estimated Blood Loss 25 Findings Consistent with Post-Op Diagnosis Operative findings revealed comminuted and medial and lateral malleolus f ractures. He had unstable trimalar ankle fracture dislocation. Specimens None Anesthesia Type General Regional Complications none Disposition Accompanied Patient To Recovery: No Indications Patient is a 68-year-old gentleman who injured his right ankle last evening. He was apparently outside cleaning up the kitchen coop when he slipped in the mud. He had acute onset of pain and discomfort and could not walk. He was able to crawl back to the house to get his daughter's attention and was brought to the ER. X-rays revealed a right trimalar ankle fracture. He has been admitted by the hospitalist service, medically optimized, and indicated for surgical treatment. Description of Procedure Operative implants: Medial side implants: 1. 4.0 long threaded partially-threaded cannulated screw x 2 both a 50 mm in length with washers. Lateral side implants: 1. Synthes 7 hole 2.7/3.5 right distal fibular locking plate. 2. 3.5 fully threaded cortical screws x 3. 3. 4.0 fully threaded cancellous screws x 2. 4. 2.7 mm locking screws x 5. The patient was taken the operating, identified, placed on the operating table in the supine position but all contact areas were appropriately padded. IV antibiotics 5 by anesthesia team. A regional anesthetic and been implemented holding area. A general anesthetic was implemented. A right thigh tent was then placed. Right lower extremity splint was removed. I then scrubbed the right leg with Hibiclens, prepped with ChloraPrep and draped in usual sterile fashion. The right leg was elevated exsanguinated with use of an Esmarch and a turn was placed at 300 mmHg. A curvilinear incision was made over the medial aspect of the ankle. Sharp dissection was carried out through subcutaneous tissue directly down the fracture site. The fracture site was opened up and irrigated. I debrided of all soft tissue. The fracture was then anatomically reduced. There was some slight comminution anteriorly which made the alignment little bit more difficult. It was fixed with 2 K wires. 2 partially-threaded/long threaded cannulated screws were then placed over the guidewires with washers. They were both 50 mm in length. Despite excellent compression medially. X-rays brought in. The hardware is in appropriate position. Attention on toward the fibula. A direct lateral approach of the finger was then performed to longitudinal incision. Sharp dissection Through subcutaneous tissue down to the bone. I then stripped the fracture site of the periosteum in order to expose it. There was quite a bit of comminution. I then held the fracture reduced. I then pinned it together with several K wires. A distal fibular locking plate was then contoured to the lateral aspect of the fibula. It was fixed proximally with a three 3.5 fully threaded cortical screws. It was then fixed more distally with 2 cancellous screws and then a five 2.7 locking screws. X-rays brought in. The ankle is anatomically aligned. I stressed the ankle and there was no gapping of the medial clear space or the syndesmosis. All hardware is appropriately positioned. Attention drawn toward closing. Irrigated the wound extensively. I injected locally with 30 cc of half percent Marcaine with epinephrine. The periosteum over the plate as well as the medial tibia was then closed with 2-0 Vicryl suture in buried interrupted fashion. The tourniquet was then let down for tourniquet time 73 minutes. Hemostasis assured with electrocautery. The wounds once again irrigated. The subcutaneous tissues then closed with 2-0 Dexon suture in a buried interrupted fashion the skin was then closed with 3-0 nylon suture in simple fashion. Leg was then cleaned and dried and sterile dressing with Xeroform, 4 fours, sterile cast padding and a well-padded posterior and stirrup splint was applied. The patient then brought out of general anesthesia and transferred to the recovery room in stable condition. Patient tolerated the procedure well and there were no complications. Sinan Nails, my physician digital assistant, was present for the entire procedure. His assistance was required for proper patient positioning, prepping and draping, surgical exposure, retraction, perform the technical details of the operation, placement of the hardware, closure of the incision site and placement of sterile bandage and postoperative splint. I attest to the content of the Intraoperative Record and any orders documented therein. Any exceptions are noted below.
[2024-01-11] MEDS ORDERED: METOCLOPRAMIDE HCL INJ 5 MG/ML 2 ML VIAL IV PRN (16:40)
[2024-01-11] MEDS ORDERED: ALUMINUM/MAGNESIUM SUSP 30 ML UDC PO PRN (16:40)
[2024-01-11] MEDS ORDERED: NALOXONE HCL 0.4 MG/1 ML VIAL/CARP IV PRN (16:40)
[2024-01-11] MEDS ORDERED: oxyCODONE HCL IR 5 MG TAB (IMMEDIATE RELEASE) PO PRN (16:40)
[2024-01-11] MEDS ORDERED: bisacodyL 10 MG SUPP PR PRN (16:40)
[2024-01-11] MEDS ORDERED: MAGNESIUM HYDROXIDE SUSP 30 ML UDC PO PRN (16:40)
[2024-01-11] MEDS ORDERED: TAMSULOSIN HCL 0.4 MG CAP PO PRN (16:40)
[2024-01-11] MEDS ORDERED: HYDROmorphone INJ 0.5 MG/0.5 ML SYR IV PRN (16:40)
--- NOTE | 2024-01-11 16:52 | Anesthesiology Progress Note ---
Date of Service January 11, 2024 Anesthesia Post Procedure Vital Signs Vital Signs: Temp Pulse Pulse Pulse Resp BP BP 01/11/24 16:50 36.7 C 71 17 165/91 H 01/11/24 16:35 37.4 C 74 16 127/82 01/11/24 16:10 36.8 C 76 18 128/76 01/11/24 16:00 78 20 127/67 01/11/24 15:50 81 18 151/78 H 01/11/24 15:42 36.1 C L 71 18 149/95 H 01/11/24 11:36 37.2 C 67 20 114/67 01/11/24 11:23 84 16 124/70 01/11/24 09:45 01/11/24 06:59 77 18 133/68 01/11/24 05:17 01/11/24 04:36 36.7 C 70 18 140/71 01/11/24 02:00 80 16 149/71 H 01/11/24 02:00 01/11/24 00:15 88 18 170/86 H 01/10/24 22:27 37.1 C 70 20 169/82 H Pulse Ox O2 Del Method O2 Flow Rate 01/11/24 16:50 96 Nasal Cannula 2 01/11/24 16:35 98 Nasal Cannula 2 01/11/24 16:10 97 Nasal Cannula 3 01/11/24 16:00 98 Oxymask 4 01/11/24 15:50 96 Oxymask 6 01/11/24 15:42 97 Oxymask 6 01/11/24 11:36 95 Room Air 01/11/24 11:23 98 Room Air 01/11/24 09:45 90 Room Air 01/11/24 06:59 97 Nasal Cannula 2 01/11/24 05:17 Nasal Cannula 01/11/24 04:36 97 Nasal Cannula 2 01/11/24 02:00 97 Nasal Cannula 2 01/11/24 02:00 97 Nasal Cannula 2 01/11/24 00:15 96 Room Air 01/10/24 22:27 95 Room Air Pain Intensity Right Leg: Pain Intensity: 5 Right Ankle: Pain Intensity: 4 Transfer of Care Handoff Completed per policy Notes Mental Status: alert / awake / arousable Patient Amnestic to Procedure: Yes Nausea / Vomiting: adequately controlled Pain: adequately controlled Airway Patency, RR, SpO2: stable & adequate BP & HR: stable & adequate Hydration State: stable & adequate Anesthetic Complications: no major complications apparent
--- NOTE | 2024-01-11 17:36 | Communication Note ---
Date of Service: January 11, 2024 Patient seen and examined post op. Right LE bandaged Pain control. Reports no pain at this time Wean off oxygen PT/OT Will follow up labs in AM
[2024-01-11] MEDS: ASCORBIC ACID 500 MG TAB PO SCH (18:00)
[2024-01-11] MEDS: KETOROLAC TROMETHAMINE 15 MG/ML VIAL IV SCH (18:01)
[2024-01-11] MEDS: DOCUSATE SODIUM 100 MG CAP PO SCH (20:11)
[2024-01-11] MEDS: SENNA 8.6 MG TAB PO SCH (20:11)
--- OUTSIDE RECORDS SUMMARY | 2024-01-11 20:54 | External Medical Summary | Summary of Care ---
Author Name Unknown Organization [facility] Address [address] [place] [address] Phone [phone] Care Team Providers Care Desktop Engineer Name Role Phone Noe Maldonado DO Primary Care Provider + Reason for Visit * Reason Onset Date Comments Appointment 11/06/2023 Encounter Details Date Type Department Care Team (Late st Contact Info) Description 11/06/2023 Telephone Gastroenterology, [facility] [address] [facility] [place] [id number] Specified, Zz No Resource [address] [place], [place] [id number] Appointment Allergies No known active allergiesdocumented as of this encounter (statuses as of 11/08/2023) Medications Medication Sig Dispensed Refills Start Date End Date Status ALLOPURINOL 300 MG PO TABS one tab by mouth daily 30 5 06/10/2007 Active RANITIDINE HCL 150 MG PO TABS one bid 60 5 06/10/2007 Active DOXYCYCLINE HYCLATE 100 MG PO TABSIndications:Lyme disease one tab by mouth 2 times a day 60 0 08/23/2007 Active documented as of this encounter (statuses as of 11/08/2023) Active Problems Problem Noted Date Diagnosed Date DYSLIPIDEMIA, GOAL TO BE DETERMINED 09/07/2009 Overview: Per Lipid Taxonomy. Lyme disease 06/15/2007 Overview: positive and antibodies and western blot Esophageal reflux Gout Obesity, BMI not known Tobacco use disorder Overview: snuff documented as of this encounter (statuses as of 11/08/2023) Resolved Problems Problem Noted Date Diagnosed Date Resolved Date Mixed dyslipidemia 9 Overview: Per Lipid Taxonomy. documented as of this encounter (statuses as of 11/08/2023) Immunizations Name Administration Dates Next Due TD - Tetanus/Diptheria (ADULT) 10/01/2003 documented as of this encounter Social History Tobacco Use Types Packs/Day Years Used Date Smoking Tobacco: Never Assessed Smokeless Tobacco: Current Snuff Comments:a can a week starte d age 17 Alcohol Use Standard Drinks/Week Comments No 0 (1 standard drink = 0.6 oz pur e alcohol) Sex and Gender Information Value Date Recorded Sex Assigned at Not on file Gender Identity Not on file Sexual Orientation Not on file documented as of this encounter Miscellaneous Notes * Addendum Note - Marielle iFtzgerald DO - 11/08/2023 8:37 AM ESTAddended by: MARIELLE FITZGERALD on: 11/08/2023 08:37 AM Modules accepted: Orders * Telephone Encounter - Marielle Fitzgerald DO - 11/08/2023 8:36 AM EST Direct endoscopic ultrasound for evaluation of multiple pancreatic cysts. Ideally this will be donewithin 3 months. * Telephone Encounter - Brittany Torres OSA - 11/07/2023 2:41 PM EST Notes scanned in please review. * Telephone Encounter - Carol Thomason OSA - 11/06/2023 8:40 AM EST Referral received from [facility] Gastroenterology DX: Cyst of pancreas Referring provider: Mitra Colbert Comments: upper EUS Records were placed into scans. Please forward to one of our advanced Endoscopist . documented in this encounter Plan of Treatment Scheduled Orders Name Type Priority Associated Diagnoses Orde r Schedule US ENDOSCOPIC Medical Imaging Routine Pancreatic cyst Expected: 11/08/2023, Expires: 12/06/2024 Health Maintenance Due Date Last Done Comments COVID-19 Vaccine (#1) 1954 Depression Screening 1966 Hepatitis C Screening 01/24/1972 Cologuard 1999 Colonoscopy 1999 Colorectal Cancer Screening 1999 Fecal Occult Blood Test 1999 Sigmoidoscopy 1999 DTaP,Tdap,and Td Vaccines (1 - Tdap) 10/02/2003 10/01/2003 Zoster Vaccines (1 of 2) 01/24/2004 Diabetes Screening 06/15/2010 06/15/2007 Lipid Panel 06/15/2012 06/15/2007 Pneumococcal Vaccine: 65+ Ye ars (1 - PCV) 2019 Influenza Vaccine (FLU shot) (#1) 2023 GARDASIL-HPV IMMUNIZATION SERIES Aged Out No longer eligible based on patient's age to complete this topic Hepatitis B Aged Out No longer eligi ble based on patient's age to complete this topic MENINGOCOCCAL (MENACTRA/MENVEO) Aged Out No longer eligible based on patient's age to complete this topic documented as of this encounter Medical Devices Not on filedocumented as of this encounter Visit Diagnoses Diagnosis Pancreatic cyst- Primary Cyst and pseudocyst of pancreas documented in this encounter Care Teams Desktop Engineer Relationship Specialty Start Date End Date Noe Maldonado DO [address] [place] [id number] PCP - General Family Medicine 11/06/23 documented as of this encounter
--- OUTSIDE RECORDS SUMMARY | 2024-01-11 20:54 | External Medical Summary | Summary of Care ---
Author Name Unknown Organization [facility] Address [address] [place] [address] Phone [phone] Care Team Providers Care Motor Equipment Commanding Officer Name Role Phone Noe Maldonado DO Primary Care Provider + Reason for Visit * Reason Onset Date Comments Appointment 11/06/2023 Encounter Details Date Type Department Care Team (Late st Contact Info) Description 11/06/2023 Telephone Gastroenterology, [facility] [address] [facility] [place] [id number] Specified, Zz No Resource [address] [place], [place] [phone] Appointment Allergies No known active allergiesdocumented as [...] as of this encounter Miscellaneous Notes * Telephone Encounter - Saira Garcia OSA - 11/08/2023 12:52 PM EST Lmm to schedule. * Addendum Note - Marielle Fitzgerald DO - 11/08/2023 8:37 AM ESTAddended by: [...] 11/06/2023 8:40 AM EST Referral received from [facility] Gastroenterology DX: Cyst of pancreas Referring provider: [...] pancreas documented in this encounter Care Teams Motor Equipment Commanding Officer Relationship Specialty Start Date End Date Noe Maldonado DO [address] [place] [phone] PCP - General Family Medicine 11/06/23 documented as of this encounter
--- OUTSIDE RECORDS SUMMARY | 2024-01-11 20:54 | External Medical Summary | Summary of Care ---
Author Name Unknown Organization [facility] Address [address] [place] [address] Phone [phone] Care Team Providers Care Advanced Solutions Architect Name Role Phone Noe Maldonado DO Primary Care Provider + Reason for Visit * Reason Onset Date Comments Appointment 11/06/2023 Encounter Details Date Type Department Care Team (Late st Contact Info) Description 11/06/2023 Telephone Gastroenterology, [facility] [address] [facility] [place] [address] Specified, Zz No Resource [address] [place], [place] [phone] Appointment Allergies No known active allergiesdocumented as of this encounter (statuses as of 11/23/2023) Medications Medication Sig Dispensed Refills Start Date End Date Status ALLOPURINOL 300 MG PO TABS one tab by mouth daily 30 5 06/10/2007 Active RANITIDINE HCL 150 MG PO TABS one bid 60 5 06/10/2007 Active DOXYCYCLINE HYCLATE 100 MG PO TABSIndications:Lyme disease one tab by mouth 2 times a day 60 0 08/23/2007 Active documented as of this encounter (statuses as of 11/23/2023) Active Problems Problem Noted Date Diagnosed Date DYSLIPIDEMIA, GOAL TO BE DETERMINED 09/07/2009 Overview: Per Lipid Taxonomy. Lyme disease 06/15/2007 Overview: positive and antibodies and western blot Esophageal reflux Gout Obesity, BMI not known Tobacco use disorder Overview: snuff documented as of this encounter (statuses as of 11/23/2023) Resolved Problems Problem Noted Date Diagnosed Date Resolved Date Mixed dyslipidemia 9 Overview: Per Lipid Taxonomy. documented as of this encounter (statuses as of 11/23/2023) Immunizations Name Administration Dates Next Due TD [...] encounter Miscellaneous Notes * Telephone Encounter - Natalie Pinto OSA - 11/23/2023 3:25 PM EST Scheduled ANDERSON Aguirre 11/23/2023 3:25 PM * Telephone Encounter - Marely Busby OSA - 11/09/2023 11:22 AM EST Pt called back and he wants to discuss this with his regular GI doc prior to scheduling an eus. * Telephone Encounter - Saira Garcia OSA [...] 11/06/2023 8:40 AM EST Referral received from [facility] Gastroenterology DX: Cyst of pancreas Referring provider: Mitra Colbert Comments: upper EUS Records were placed into scans. Please forward to one of our advanced Endoscopist . documented in this encounter Plan of Treatment Upcoming Encounters Date Type Department Care Team (Latest Contact Info) Description 01/17/2024 10:00 AM EDT Hospital Encounter ENDO [facility], Endoscopy Room [facility] [address] [place] [address] Marielle Fitzgerald DO [address] [place] [address] 01/17/2024 10:00 AM EDT - 01/17/2024 11:00 AM EDT Surgery ENDO [facility], Endoscopy Room [facility] [address] [place] [id number] Marielle Fitzgerald DO [address] [place] [address] ESOPHAGOGASTRODUODENOSCOPY (EGD), FLEXIBLE, TRANSORAL, ENDOSCOPIC ULTRASOUND Scheduled Orders Name Type Priority Associated Diagnoses Orde r Schedule US ENDOSCOPIC Medical Imaging Routine Pancreatic cyst Expected: 11/08/2023, Expires: 12/06/2024 Scheduled Procedures Name Priority Associated Diagnoses Date/Ti me ESOPHAGOGASTRODUODENOSCOPY ( EGD), FLEXIBLE, TRANSORAL, ENDOSCOPIC ULTRASOUND Pancreas cyst 01/17/2024 10:00 AM EDT ESOPHAGOGASTRODUODENOSCOPY ( EGD), FLEXIBLE, TRANSORAL, DIAGNOSTIC Pancreas cyst 01/17/2024 10:00 AM EDT Health Maintenance Due Date Last Done Comments Depression Screening 1966 Hepatitis C Screening 01/24/1972 Cologuard 1999 Colonoscopy 1999 Colorectal Cancer Screening 1999 Fecal Occult Blood Test 1999 Sigmoidoscopy 1999 DTaP,Tdap,and Td Vaccines (1 - Tdap) 10/02/2003 10/01/2003 Zoster Vaccines (1 of 2) 01/24/2004 Diabetes Screening 06/15/2010 06/15/2007 Lipid Panel 06/15/2012 06/15/2007 Pneumococcal Vaccine: 65+ Ye ars (1 of 1 - PCV) 2019 COVID-19 Vaccine ( - 2022-2 4 season) 2023 Influenza Vaccine (FLU shot) (#1) 2023 GARDASIL-HPV [...] cyst- Primary Cyst and pseudocyst of pancreas Pancreas cyst Cyst and pseudocyst of pancreas documented in this encounter Care Teams Advanced Solutions Architect Relationship Specialty Start Date End Date Noe Maldonado DO [address] [place] [address] PCP - General Family Medicine 11/06/23 documented as of this encounter
--- OUTSIDE RECORDS SUMMARY | 2024-01-11 20:54 | External Medical Summary | Summary of Care ---
Author Name Unknown Organization [facility] Address [address] [place] [address] Phone [phone] Care Team Providers Care Heel Packer Name Role Phone Noe Maldonado DO Primary Care Provider + Reason for Visit * Reason Onset Date Comments Appointment 11/06/2023 Encounter Details Date Type Department Care Team (Late st Contact Info) Description 11/06/2023 Telephone Gastroenterology, [facility] 132 [facility] [place] [address] Specified, Zz No Resource [address] [place], [place] [phone] Appointment Allergies No known active allergiesdocumented as of this encounter (statuses as of 11/07/2023) Medications Medication Sig Dispensed Refills Start Date End Date Status ALLOPURINOL 300 MG PO TABS one tab by mouth daily 30 5 06/10/2007 Active RANITIDINE HCL 150 MG PO TABS one bid 60 5 06/10/2007 Active DOXYCYCLINE HYCLATE 100 MG PO TABSIndications:Lyme disease one tab by mouth 2 times a day 60 0 08/23/2007 Active documented as of this encounter (statuses as of 11/07/2023) Active Problems Problem Noted Date Diagnosed Date DYSLIPIDEMIA, GOAL TO BE DETERMINED 09/07/2009 Overview: Per Lipid Taxonomy. Lyme disease 06/15/2007 Overview: positive and antibodies and western blot Esophageal reflux Gout Obesity, BMI not known Tobacco use disorder Overview: snuff documented as of this encounter (statuses as of 11/07/2023) Resolved Problems Problem Noted Date Diagnosed Date Resolved Date Mixed dyslipidemia 9 Overview: Per Lipid Taxonomy. documented as of this encounter (statuses as of 11/07/2023) Immunizations Name Administration Dates Next Due TD [...] encounter Miscellaneous Notes * Telephone Encounter - Brittany Torres OSA - 11/07/2023 2:41 PM EST Notes scanned in please review. * Telephone Encounter - Carol Thomason OSA - 11/06/2023 8:40 AM EST Referral received from [facility] Gastroenterology DX: Cyst of pancreas Referring provider: Mitra Colbert Comments: upper EUS Records were placed into scans. Please forward to one of our advanced Endoscopist . documented in this encounter Plan of Treatment Health Maintenance Due Date Last Done Comments [...] Not on filedocumented as of this encounter Care Teams Heel Packer Relationship Specialty Start Date End Date Noe Maldonado DO [address] [place] [id number] PCP - General Family Medicine 11/06/23 documented as of this encounter
--- OUTSIDE RECORDS SUMMARY | 2024-01-11 20:54 | External Medical Summary | Summary of Care ---
Author Name Unknown Organization [facility] Address [address] [facility] [place] [address] Phone [phone] Care Team Providers Care Engraver Hand Soft Metals Name Role Phone Noe Maldonado DO Primary Care Provider + Reason for Visit * Reason Onset Date Comments Procedure 11/07/2023 Encounter Details Date Type Department Care Team (Late st Contact Info) Description 11/07/2023 Telephone Gastroenterology, [facility] [address] [place] [address] Jose Rafael Fitzgerald DO [address] [place] [address] Procedure Allergies No known active allergiesdocumented as of this encounter (statuses as of 11/09/2023) Medications Medication Sig Dispensed Refills Start Date End Date Status ALLOPURINOL 300 MG PO TABS one tab by mouth daily 30 5 06/10/2007 Active RANITIDINE HCL 150 MG PO TABS one bid 60 5 06/10/2007 Active DOXYCYCLINE HYCLATE 100 MG PO TABSIndications:Lyme disease one tab by mouth 2 times a day 60 0 08/23/2007 Active documented as of this encounter (statuses as of 11/09/2023) Active Problems Problem Noted Date Diagnosed Date DYSLIPIDEMIA, GOAL TO BE DETERMINED 09/07/2009 Overview: Per Lipid Taxonomy. Lyme disease 06/15/2007 Overview: positive and antibodies and western blot Esophageal reflux Gout Obesity, BMI not known Tobacco use disorder Overview: snuff documented as of this encounter (statuses as of 11/09/2023) Resolved Problems Problem Noted Date Diagnosed Date Resolved Date Mixed dyslipidemia 9 Overview: Per Lipid Taxonomy. documented as of this encounter (statuses as of 11/09/2023) Immunizations Name Administration Dates Next Due TD [...] encounter Miscellaneous Notes * Telephone Encounter - Marely Busby OSA - 11/09/2023 11:22 AM EST Dup tel encounter * Telephone Encounter - Brittany Torres OSA - 11/07/2023 2:42 PM EST Notes scanned please review. documented in this encounter Plan of Treatment [...] filedocumented as of this encounter Care Teams Engraver Hand Soft Metals Relationship Specialty Start Date End Date Noe Maldonado DO [address] [place] [address] PCP - General Family Medicine 11/06/23 documented as of this encounter
--- OUTSIDE RECORDS SUMMARY | 2024-01-11 20:54 | External Medical Summary | Summary of Care ---
Author Name Unknown Organization [facility] Address [address] [place] [address] Phone [phone] Care Team Providers Care Tree Feller Name Role Phone Noe Maldonado DO Primary Care Provider + Reason for Visit * Reason Onset Date Comments Appointment 11/06/2023 Encounter Details Date Type Department Care Team (Late st Contact Info) Description 11/06/2023 Telephone Gastroenterology, [facility] [address] [facility] [place] [address] Specified, Zz No Resource [address] [place], [place] [phone] Appointment Allergies No known active allergiesdocumented as [...] 11/06/2023 8:40 AM EST Referral received from [facility] Gastroenterology DX: Cyst of pancreas Referring [...] pancreas documented in this encounter Care Teams Tree Feller Relationship Specialty Start Date End Date Noe Maldonado DO [address] [place] [id number] PCP - General Family Medicine 11/06/23 documented as of this encounter
--- OUTSIDE RECORDS SUMMARY | 2024-01-11 20:54 | External Medical Summary | Summary of Care ---
Author Name Unknown Organization [facility] Address [address] [facility] [place] [address] Phone [phone] Care Team Providers Care Tool Setter Apprentice Name Role Phone Noe Maldonado DO Primary Care Provider + Reason for Visit * Reason Onset Date Comments Procedure 11/07/2023 Encounter Details Date Type Department Care Team (Late st Contact Info) Description 11/07/2023 Telephone Gastroenterology, [facility] [address] [place] [address] Jose Rafael Fitzgerald DO [address] [place] [address] Procedure Allergies No known active allergiesdocumented as [...] filedocumented as of this encounter Care Teams Tool Setter Apprentice Relationship Specialty Start Date End Date Noe Maldonado DO [address] [place] [address] PCP - General Family Medicine 11/06/23 documented as of this encounter
[2024-01-11] MEDS: ceFAZolin 2000MG 2,000 MG/15 ML SYR IV SCH (21:50)
[2024-01-11] MEDS: ACETAMINOPHEN 500 MG TAB PO SCH (21:51)
[2024-01-12] MEDS: GABAPENTIN 600 MG TAB PO SCH (00:55)
[2024-01-12 06:14] LABS: Hematocrit (blood only) 41.3 % (42.0-52.0); Hemoglobin 14.1 g/dl (14.0-18.0); Mean Corpuscular Hemoglobin 35.8 pg (25.0-34.0); Mean Corpuscular Hgb Conc 34.1 g/dL (32.0-36.0); Mean Corpuscular Volume 104.8 fL (80.0-100.0); Mean Platelet Volume 11.3 fL (9.4-12.4); Platelet Count 175 K/uL (130-400); RDW Coefficient of Variation 13.2 % (11.5-14.5); RDW Standard Deviation 50.5 fL (36.4-46.3); Red Blood Count 3.94 M/uL (4.70-6.10); White Blood Count 10.52 K/ul (4.8-10.8)
[2024-01-12 06:34] LABS: Calcium 8.6 mg/dl (8.6-10.3); Potassium 4.4 mmol/L (3.5-5.1)
[2024-01-12 06:42] LABS: BUN Creatinine Ratio 16.7 (10-20); Creatinine Clr Calc Pharmacy 56.5 ml/min; Est GFR (African American) 51.8 ml/min; Est GFR (Non-African American) 44.7 ml/min
[2024-01-12] MEDS: dexAMETHasone 10 MG in SYRINGE 0 ML IV SCH (07:43)
--- NOTE | 2024-01-12 07:43 | Surgery Progress Note ---
Date of Service January 12, 2024 Assessment & Plan (1) Closed trimalleolar fracture: Plan: 68-year-old gentleman postop day 1 from of a trimalar ankle fracture dislocation. Orthopedically he is doing well. His pain is controlled. He is neurologically intact. Plan: 1. DVT prophylaxis including thigh-high teds, SCDs, baby aspirin twice a day. 2. PT/OT. He is nonweightbearing right leg. Needs to follow heel precautions. Keep all pressure off the heel. 3 pain control doing pretty well with current pain regimen. 4. Care. Will leave the splint clean dry and intact for the next 2 weeks. Needs to keep all pressure off his heel. 5. Disposition he is orthopedically okay for discharge anytime medically okay. I need to see him back somewhere between 2 and 3 weeks out from surgery date. Any orthopedic questions can be directed at [phone] Admission and Anticipated Discharge Date Admission Date: January 11, 2024 Subjective 68-year-old gentleman postop day 1 from ORIF of right trimalleolar ankle fracture dislocation. He is doing well this morning. Really reports no particular pain. Hoping to go home today. Physical Exam Physical Exam: Physical examination is a pleasant middle-age male. He is sitting up in his bed and looks quite comfortable. Examination of the right ankle reveals the dressing and splint to be clean dry and intact he can dorsiflex and plantarflex his toes appropriately. He is neurologically intact. Results & Data Vital Signs (Past 12 Hours) Vital Signs Temp Pulse Resp BP Pulse Ox O2 Del Method 01/12/24 03:38 36.8 C 70 16 160/85 H 98 Room Air 01/11/24 23:08 36.7 C 73 16 124/77 98 Room Air PG Care Time/CCT Total # of Minutes Spent Total Time Spent with Patient: Total time spent is greater than 50% in coordination of care (as documented) at patient's floor/unit and/or counseling patient: Coding Level of Care Code 58430 Post Operative Follow-Up Diagnoses Closed trimalleolar fracture of right ankle, initial encounter S82.851A Encounter type: initial encounter Laterality: right (1) Closed trimalleolar fracture Encounter type: initial encounter Laterality: right Qualified Code(s): S82.851A - Displaced trimalleolar fracture of right lower leg, initial encounter for closed fracture
[2024-01-12] MEDS: FOLIC ACID 1 MG in SYRINGE 9.8 ML IV SCH (07:49)
[2024-01-12] MEDS: THIAMINE HCL 100 MG in SYRINGE 9 ML IV SCH (07:49)
[2024-01-12] MEDS ORDERED: MULTIVITAMIN TAB PO SCH (09:00)
--- NOTE | 2024-01-12 13:07 | Discharge Summary ---
Date of Service January 12, 2024 Admission HPI Per Admitting Provider 68-year-old male with past medical history significant for gout, hypertension, GERD is s/p fall and found to have right ankle fracture. Patient was tending to chicken when he slipped and fell in the mud and twisted his leg. Was having pain. Prior to falling was able to ambulate okay. He can ambulate a block without stopping. He can climb steps. Denies any chest pain or shortness of breath. No nausea. No headache. No dizziness. Vision is okay. No runny nose or sore throat or cough. No nausea. No abdominal pain. Normal bowel and bladder movements. Currently resting comfortably and hemodynamically stable. No fevers Past medical history. As mentioned above Past surgical history. Right wrist fracture ORIF. Right shoulder surgery Social history. . Snuff tobacco states drink 3-4 shots of vodka daily. 2 drug use Family history. Mother had heart disorder Admission Exam Per Admitting Provider General- Not in distress Head- atraumatic Eyes- PERRL ENT- oropharynx clear Neck- supple, no JVD. Lungs- clear to auscultation no wheezing or crackles Heart- regular rate and rhythm; no murmur, no gallop. Abdomen- normal bowel sounds, soft, nontender, no distension Extremities- Right leg in splint.left leg no edema or erytthema Neuro- alert, oriented ; PERRL, no facial palsy; no dysarthria; obeys simple commands Principal Diagnosis Fall Right Ankle Fracture Status post Open Reduction and Internal Fixation Discharge Exam Constitutional + well hydrated and + obese; no acute distress Eyes PERRL, conjunctivae normal, anicteric sclerae ENMT external ear and nose normal, oropharynx normal Respiratory normal respiratory effort, lungs clear to auscultation Cardiovascular Rate/Rhythm: regular rate and regular rhythm Gastrointestinal (Abdomen) normal bowel sounds, soft, nontender, no hepatosplenomegaly Musculoskeletal Right leg in splint/dressing Neurologic PERRL, EOMI, accommodation nl, no face palsy, no dysarthria Psychiatric A+Ox3, euthymic affect Discharge Data Allergies Allergy/AdvReac Type Severity Reaction Status Date / Time No Known Allergies Allergy Verified 01/11/24 00:28 Consultations 01/11/24 00:30 ED Decision to Admit Stat 01/11/24 07:17 Consult Orthopedic Surgery Routine Procedures Performed Operation Date: 01/11/24 07:20 Actual Procedures p Right Open Reduction Internal Fixation Ankle(Right) - Cam Mosquera MD Ordered Studies 01/11/24 FL ankle RT 2V Routine Hospital Course (1) Fall from slipping on mud: 68-year-old male with past medical history significant for gout, hypertension, GERD is s/p fall and found to have right ankle fracture. Patient was tending to chicken when he slipped and fell in the mud and twisting his leg. Was having pain. Prior to falling was able to ambulate okay. He can ambulate a block without stopping. Fall from slipping on mud Right ankle fracture Ankle XRay showed acute comminuted displaced and angulated trimalleolar ankle fracture in the right, tibial talar subluxation with intra-articular fracture fragments Patient was evaluated by orthopedic surgeon and had Right open reduction internal fixation of the trimalleolar ankle on 01/11/24 Pain is well controlled Was evaluated by PT/OT Being discharged with rolling walker He is to be NWB RLE He is to follow up with Ortho Daughter reported she will stay with him this weekend HH will start within the week Hypertension Continue home medications of hydrochlorothiazide, clonidine and losartan GERD omeprazole Alcoholism States drinks 3-4 shots of vodka daily and he states he can go without drinking and does not think he gets withdrawal No signs of withdrawal inpatient Morbid obesity [place] Provided counseling regarding lifestyle modification Follow up with PCP Total Time Total Time Spent Total Time Spent (In Minutes): 35 Total Time Includes: Examination of the Patient, Discharge Planning and Medication Reconciliation Discharge Plan Discharge Items Patient Disposition: Home - Home Health Services Reason For Visit: FALL, RIGHT ANKLE FRACTURE Discharge Diagnosis: Fall Right Ankle Fracture Status post Open Reduction and Internal Fixation Activity: Per Instructions section Weightbearing: Right non-weightbearing Weightbearing Comment: Non-weightbearing right leg. Keep all pressure off heel Non-emergency contact: Primary Care Provider and Surgeon Call non-emergency contact if: you have any medication questions Follow-up/Referrals: Cam Mosquera MD [Physician] - (Orthopedic follow-up in 2-3 weeks) Kaela Cmapos PA-C [Primary Care Provider] - Diet: Heart Healthy Addtl Attending Provider Instructions: Mr Hayden You came to the hospital after a fall and was found to have right ankle fracture You had surgery for this. You are being discharged home Please use the walker and move as instructed Do not bear weight on your right leg for now Please take your aspirin twice a day as we discussed for now. You can take the tylenol three times a day for the next 4 days, then use as needed afterwards for pain. Only use the oxycodone for severe pain as needed. It was a pleasure taking care of you. Addtl Car Pincher Provider Instructions: Keep splint and dressing clean, dry, and in place until return to clinic appointment in 2-3 weeks. Elevate right leg as much as possible. Keep all pressure off heel. Pending Studies at Discharge: No Stand-Alone Forms: My [facility] So Protect Me, Smoking Cessation Medications and DC Order Prescriptions: New acetaminophen [Tylenol Extra Strength] 500 mg Tablet 1,000 mg PO Q8 Qty: 30 0RF oxycodone 5 mg Tablet 5 mg PO Q6H PRN (Reason: severe pain (scale score 7-10)) Qty: 20 0RF polyethylene glycol 3350 [Miralax] 17 gram Powder In Packet 17 g PO DAILY PRN (Reason: constipation) Qty: 30 0RF Continued clonidine HCl 0.1 mg tablet 0.1 mg PO QAM losartan 100 mg tablet 100 mg PO QAM hydrochlorothiazide 25 mg tablet 25 mg PO QAM omeprazole 20 mg capsule,delayed release(DR/EC) 20 mg PO QAM gabapentin 100 mg capsule 100 mg PO BID cholecalciferol (vitamin D3) 50 mcg (2,000 unit) capsule 50 mcg PO QAM allopurinol 300 mg tablet 300 mg PO QAM multivitamin Tablet 1 tab PO DAILY cyanocobalamin (vitamin B-12) [Vitamin B-12] 5,000 mcg Tablet, Sublingual 5,000 mcg SUBLINGUAL DAILY potassium citrate 99 mg Capsule 99 mg PO DAILY Changed aspirin 81 mg Capsule 81 mg PO BID 28 Days Qty: 56 0RF Discharge Orders: Discharge Order (Routine); Ordered 01/12/24 Ordered By: Josefina Ugarte/Other Patient Handouts: Ankle Fracture ORIF, Walker Using No Weight Steps, Walker Sitting No Weight Steps, Walker Stand Non Wt Bearing Steps Admission Data Admit Date/Time: 01/11/24 02:49 Attending Provider: Josefina Chaney I. Admit Provider: Slava Montoya Primary Care Provider: Kaela Campos Other Providers: Slava Montoya; Cam Mosquera; [facility] Other Interventions: Discharge Summary Assessment (RN) Last Done: 01/12/24 13:38
--- NOTE | 2024-01-12 17:25 | Communication Note ---
Date of Service: January 12, 2024 Code 44 attestation: The chart reviewed. Right ankle fracture is status post open reduction internal fixation. He was managed appropriately by the attending and the specialist. By CMS guidelines, a determination that the admission or continued stay is not medically necessary has been made by a member of the UR committee and a physician for this hospital stay, therefore a Code 44 will be completed and the Inpatient admission will be changed to outpatient. Dr Jennifer Garcia
[2024-01-13] MEDS ORDERED: GABAPENTIN 600 MG TAB PO SCH (06:00)
[2024-01-13] MEDS ORDERED: GABAPENTIN 100 MG CAP PO SCH (09:00)
[2024-01-14] MEDS ORDERED: GABAPENTIN 600 MG TAB PO SCH (18:00)
== END 2024-01-12 14:48 | disposition home health service (06) | DRG 493 ==
LOC: ED 22:27 → INTOOBSV 01-11 02:49 → EDINP 01-11 02:49 → 3E 01-11 16:28